=== PATIENT | male | born 1955 | race Caucasian/White ===

== ENCOUNTER 2016-08-15 07:55 | Day surgery (SDC) | payer BC ==
[~2016-08-15 07:55] MED LIST: RINGERS SOLUTION,LACTATED 1,000 ML IV PRN
--- OUTSIDE RECORDS SUMMARY | 2016-08-15 07:58 | XMS REPORT | Summary of Care ---
:1955 Author Organization [facility] Address [address] [place] [address] Care Team Providers Name Role Phone James Wilson Primary Care Physician Encounter Date(s): 07/06/15 - 07/06/15 [facility] Angie Long, [address] [place], [place] [address] Discharge Disposition: 01 Discharged to Home or Self Care Attending Physician: Aamir Bennett MD Referring Physician: Aamir Bennett MD Vital Signs Most recent to oldest [Reference Range]: 1 Peripheral Pulse Rate [60-100 bpm] 69 bpm (07/06/15 11:18 AM) Blood Pressure [90-130/60-90 mmHg] 133/89mmHg *HI* (07/06/15 11:18 AM) Mean Arterial Pressure, Cuff 104 mmHg (07/06/15 11:18 AM) Most recent to oldest [Reference Range]: 1 Height/Length Measured 187 cm (07/06/15 11:18 AM) Weight Dosing 122.50 kg1 (07/06/15 11:21 AM) Weight Measured 122.50 kg (07/06/15 11:18 AM) BSA Measured 2.46 m2 (07/06/15 11:18 AM) Body Mass Index Measured 35.03 kg/m2 (07/06/15 11:18 AM) 1Result Comment: This result was because the dosing weight was either not entered or it is>30 days old. This result is based off: Weight Measured July 06, 2015 11:18:00 CDT by Lilo Crespo Athletic Director Problem List Condition Effective Dates Status Health Status Informant Hypertension(Confirmed) Active Allergies, Adverse Reactions, Alerts No Known Medication Allergies Medications gabapentin 300 mg oral capsule 1 cap(s), Oral, TID, # 9 cap(s), 0 Refill(s), Start Date: 04/09/15 9:23:00 [employer] Start Date: 04/09/15 Stop Date: 04/12/15 Status: Orderedibuprofen 0 Refill(s), Start Date: 07/01/14 8:31:00 CDT Start Date: 07/01/14 Stop Date: 04/07/15 Status: Discontinuedibuprofen 800 mg oral tablet 1 tab(s), Oral, q8hr interval, # 30 tab(s), 0 Refill(s), Start Date: 06/17/14 17 :26:00 CDT, [facility]acy: [facility] [place], [place] Start Date: 06/17/14 Stop Date: 06/17/14 Status: Completedibuprofen 800 mg oral tablet 1 tab(s), Oral, TID, PRN for pain, # 30 tab(s), 0 Refill(s), Start Date: 9:22:00 [employer] Start Date: 04/09/15 Stop Date: 04/24/15 Status: Completedibuprofen 800 mg oral tablet 1 tab(s), Oral, TID, PRN for pain, # 30 tab(s), 0 Refill(s), Start Date: 9:51:27 [employer]ER, Pharmacy: [facility] Start Date: 04/24/15 Stop Date: 07/06/15 Status: CompletedLOTREL LOTREL, See Instructions, 5/20mg 1 daily, 0 Refill(s) Special Instructions: 5/20mg 1 daily Start Date: 05/25/13 Stop Date: 06/13/14 Status: CompletedLotrel 5 mg-20 mg oral capsule 1 cap(s), Oral, Daily, 0 Refill(s), Start Date: 06/13/14 9:49:00 CDT Start Date: 06/13/14 Stop Date: 06/17/14 Status: CompletedLotrel 5 mg-20 mg oral capsule 1 cap(s), Oral, Daily Start Date: 04/07/15 Status: OrderedPercocet 5/325 oral tablet See Instructions, 1 po qid prn pain *rx picked up in the office., # 90 tab(s) , 0 Refill(s), Start Date: 05/22/14 8:52:00 CDT, other reason (Rx) Special Instructions: 1 po qid prn pain *rx picked up in the office. Start Date: 05/22/14 Stop Date: 06/13/14 Status: CompletedPercocet 5/325 oral tablet 2 tab(s), Oral, q6hr, # 60 tab(s), 0 Refill(s), Start Date: 06/17/14 17:26:00 CDT Start Date: 06/17/14 Stop Date: 06/17/14 Status: CompletedPercocet 5/325 oral tablet See Instructions, 1-2 tablets by mouth every 4-6 hours as needed for pain, not to exceed 8 tablets/day, # 30 tab(s), 0 Refill(s), Start Date: 04/09/15 9:22:00 [employer] Special Instructions: 1-2 tablets by mouth every 4-6 hours as needed for pain, not to exceed 8 tablets/day Start Date: 04/09/15 Stop Date: 04/24/15 Status: CompletedToprol-XL 50 mg, Oral, Daily, 0 Refill(s), Start Date: 05/25/13 12:59:00 CDT Start Date: 05/25/13 Status: Ordered Results No data available for this section Immunizations No data available for this section Procedures Procedure Date Related Diagnosis Body Site Arthroscopy Shoulder (Left)1 04/09/15 Arthroscopy Shoulder (Left)2 06/17/14 Arthroscopy of shoulder - right3 2012 Rotator cuff repair 2013 Surgical procedure - Right shoulder NOS4 2009 Nasal Surgery Repair - Nasal Fracture repair NOS 1auto-populated from documented surgical [id number] from documented surgical [id number] [id number] Lopez Social History No data available for this section Assessment and Plan No data available for this section
--- OUTSIDE RECORDS SUMMARY | 2016-08-15 07:58 | XMS REPORT | Summary of Care ---
:1955 Author Organization [facility] Address [address] [place] [address] Care Team Providers Name Role Phone James Wilson Primary Care Physician Encounter Date(s): 07/06/15 - 07/06/15 [facility] Angie Long, [address] [place], [place] [address] Discharge Disposition: 01 Discharged to Home or [...] 06, 2015 11:18:00 CDT by Lilo Crespo Reimbursement Manager Problem List Condition Effective Dates Status Health Status Informant Hypertension(Confirmed) Active Allergies, Adverse Reactions, Alerts No Known Medication Allergies Medications gabapentin 300 mg oral capsule 1 cap(s), Oral, TID, # 9 cap(s), 0 Refill(s), Start Date: 04/09/15 9:23:00 [employer] INST[employer]ER Start Date: 04/09/15 Stop Date: 04/12/15 Status: Orderedibuprofen 0 Refill(s), Start Date: 07/01/14 8:31:00 CDT Start Date: 07/01/14 Stop Date: 04/07/15 Status: Discontinuedibuprofen 800 mg oral tablet 1 tab(s), Oral, q8hr interval, # 30 tab(s), 0 Refill(s), Start Date: 06/17/14 17 :26:00 CDT, Pharmacy: [facility] [place], [place] Start Date: 06/17/14 Stop Date: 06/17/14 Status: Completedibuprofen 800 mg oral tablet 1 tab(s), Oral, TID, PRN for pain, # 30 tab(s), 0 Refill(s), Start Date: 9:22:00 [employer]ST[employer]ER Start Date: 04/09/15 Stop Date: 04/24/15 Status: Completedibuprofen 800 mg oral tablet 1 tab(s), Oral, TID, PRN for pain, # 30 tab(s), 0 Refill(s), Start Date: 9:51:27 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
[2016-08-15] MEDS ORDERED: RINGERS SOLUTION,LACTATED 1,000 ML IV PRN (09:06)
[2016-08-15 09:47] VITALS: BP 116/77
--- NOTE | 2016-08-15 13:24 | OR ---
Operative Report - Dictated Report Narrative: OPERATIVE REPORT DATE OF OPERATION: 08/15/2016 PREOPERATIVE DIAGNOSIS: No prior dedicated colon studies POSTOPERATIVE DIAGNOSIS: Sigmoid diverticulosis OPERATION: Colonoscopy SURGEON: Huyen Romero MD ANESTHESIA: MAC Jamarcus Tineo CRNA INDICATIONS FOR PROCEDURE: The patient is a 60-year-old male referred for an initial colon screening by A Charito AGUILAR. The patient has had no previous dedicated colon studies. There is no family history of colon cancer. The patient is currently asymptomatic FINDINGS: Moderate sigmoid diverticulosis otherwise normal colonoscopy to the cecum NARRATIVE OF PROCEDURE: The patient was identified in the holding area, and prior to the administration of anesthetic, a multidisciplinary timeout was observed. With the patient in the left lateral position and after the administration of intravenous sedation, the perineum was inspected. There was no evidence of pilonidal disease or skin breakdown. The external appearance of the anus was normal. Sphincter tone was good. The flexible fiberoptic colonoscope was inserted into the rectum which was insufflated with air. The rectal mucosa and submucosal vascular pattern appeared normal, the prep was seen to be complete. The scope was advanced through the sigmoid colon, which contained numerous large non-impacted noninflamed diverticular openings. The scope was advanced up the descending colon, and around the splenic flexure where the triangular haustral architecture of the transverse colon was seen. The scope was advanced across the transverse colon, around the hepatic flexure to the cecum, where the confluence of tenia and the ileocecal valve were identified. The mucosa at this level appeared normal. The scope was then slowly withdrawn in a circular fashion so that all aspects of colonic mucosa were inspected. The colon was normal in course and caliber. The haustral architecture appeared well preserved throughout with no evidence of external compression. The mucosa and submucosal vascular pattern appeared normal, specifically there was no gross evidence to suggest colitis or inflammatory bowel disease and no AV malformations were seen. The diverticulosis was moderate in degree and confined primarily to the sigmoid colon. No polyps were encountered. The scope was gradually withdrawn to the level of the rectum. As much insufflated air as possible was removed. The scope was withdrawn from the patient and the procedure terminated. The patient tolerated the anesthetic and procedure well without complication and was transferred back to the ambulatory surgery area awake and in stable condition. The patient remained stable throughout a period of postoperative observation. He denied abdominal discomfort, was able to tolerate by mouth intake, and was up without assistance. I shared the operative findings with the patient and he was given copies of the photographs which appear in the medical record. He was discharged home with instructions not to engage in hazardous activity today, but may resume normal activity tomorrow, and advance diet as tolerated. He is to continue those medications as listed in the history and physical exam. RECOMMENDATION: A pamphlet on diverticular disease was reviewed with him and given to him. A higher fiber diet and trial of Benefiber was suggested. Colon surveillance in 10 years depending upon findings and symptoms Reviewed and electronically signed
== END 2016-08-15 07:56 | disposition home or self-care (01) ==
LOC: AMB 07:55
PROVIDERS: ATTEND Surgery
PROC: 0DJD8ZZ Inspection of Lower Intestinal Tract, Via Natural or Artificial Opening Endoscopic (ICD-10-PCS; principal; 2016-08-15 09:00)
DX: Z12.11 Encounter for screening for malignant neoplasm of colon (principal); K57.30 Diverticulosis of large intestine without perforation or abscess without bleeding; I10 Essential (primary) hypertension; Z68.34 Body mass index [BMI] 34.0-34.9, adult